=== PATIENT | female | born 1965 | race Caucasian/White ===

== ENCOUNTER 2022-07-17 07:42 | Outpatient (CLI) | payer OTHER, SELFPAY ==
--- OUTSIDE RECORDS SUMMARY | 2022-07-17 07:46 | XMS_ITS | Clinical Summary ---
:1965 Author Organization [facility] [place] [address] Care Team Providers Name Role Phone Pcp, No Primary Care Provider Unavailable Allergies Active Allergy Reactions Severity Noted Date Comments Erythromycin Stomach Upset 12/13/2008 Patient report s a sensitivity to this medication . Medications Medication Sig Dispensed Refills Start Date End Date Status meclizine (ANTIVERT) Take 1 tablet by 30 tablet 0 02/18/2019 Active 12.5 mg mouth 3 times tabletIndications: daily if needed. Benign paroxysmal positional vertigo of left ear Active Problems Problem Noted Date Sebaceous cyst 12/10/2011 Elevated BP 12/13/2008 Well woman exam 12/13/2008 Immunizations Name Administration Dates Next Due Tdap 12/13/2008 Family History Medical History Relation Name Comments Heart Disease Father double bypass Hyperlipidemia Father controlled high LDL Cancer-breast Maternal Grandfather at age 80 Diabetes Maternal Grandmother type 2 Asthma Mother Cancer Mother uterine cancer a t age 39 Good Health Mother Relation Name Status Comments Brother Alive Daughter Alive Father Alive Maternal Grandfather Maternal Grandmother Mother Alive Paternal Grandfather Paternal Grandmother Son Alive Social History Tobacco Use Types Packs/Day Years Used Date Never Smoker Smokeless Tobacco: Never Used Tobacco Cessation: Counseling Given: Yes Alcohol Use Standard Drinks/Week Comments Yes 0 (1 standard drink = 0.6 oz pure alcoho l) Alcohol Habits Answer Date Recorded How often do you have a drink containing alcohol? 2-4 times a month 02/18/2019 How many drinks containing alcohol do you have on a 1 or 2 02/18/2019 typical day when you are drinking? How often do you have six or more drinks on one Never 02/18/2019 occasion? Comment: Not asked Sex Assigned at Date Recorded Not on file Obstetrics History Para Term AB IAB SAB Ectopic Multiple Living Live Births 3 2 2 0 1 0 1 0 0 2 2 Date Outcome GA Total Labor/2nd/3rd Weight Sex Delivery Anes PTL Matilde A 1 A5 Name Clin Labor Term Vag Park ng Term Vag Park ng SAB Last Filed Vital Signs Vital Sign Reading Time Taken Comments Blood Pressure 142/83 11/04/2019 4:02 PM STRAIGHT TOOTH GEAR GENERATOR OPERATOR Pulse 88 11/04/2019 4:02 PM STRAIGHT TOOTH GEAR GENERATOR OPERATOR Temperature 36.7 ??C (98 ??F) 11/04/2019 4:01 PM STRAIGHT TOOTH GEAR GENERATOR OPERATOR Respiratory Rate - - Oxygen Saturation 99% 11/04/2019 4:01 PM STRAIGHT TOOTH GEAR GENERATOR OPERATOR Inhaled Oxygen Concentration - - Weight 101.6 kg (224 lb) 11/04/2019 4:01 PM STRAIGHT TOOTH GEAR GENERATOR OPERATOR Height 166.2 cm (5' 5.43) 11/04/2019 4:01 PM STRAIGHT TOOTH GEAR GENERATOR OPERATOR Body Mass Index 36.78 11/04/2019 4:01 PM STRAIGHT TOOTH GEAR GENERATOR OPERATOR Plan of Treatment Health Maintenance Due Date Last Done Comments COVID-19 vaccine series (#1) 01/19/1967 Hepatitis C screening for age 1007/22/1984 18-79 Colonoscopy through age 75 2011 Mammogram for age 45-75 11/01/2012 11/01/2011 Zoster (shingles) series for age 1007/22/2016 50+ (1 of 2) Lipids for age 45-75 12/09/2016 12/10/2011, 12/13/2008 Tetanus booster 12/13/2018 12/13/2008 BMI (ht and wt on same day) for 11/04/2020 11/04/2019, 08/0 05/2016 age 18+ Depression screening for age 12+ 11/04/2020 11/04/2019 Influenza for age 50-64 05/23/2022 Pap test for age 21-65 06/10/2022 06/10/2019, 06/10/2019, 12/10/2011, Additional history exists Tdap Completed 12/13/2008 Results Not on filefrom Last 3 Months Insurance Payer Benefit Plan / Subscriber ID Effective Dates Phone Addre ss Type Group [facility] [id number] 2019-Present [address] [address] [place] [address] Care Teams Motor Hotel Manager Relationship Specialty Start Date End Date Pcp, No PCP - General 06/02/12 .
[2022-07-17 09:28] LABS: Albumin* 4.5 g/dL (3.3-5.0)
[2022-07-17 09:29] LABS: Chloride* 102 mmol/L (96-114); Potassium* 4.7 mmol/L (3.6-5.1); Sodium* 139 mmol/L (135-149)
[2022-07-17 09:31] LABS: Aspartate Amino Transferase* 25 U/L (12-35); Bilirubin Total* 1.1 mg/dL (0.1-1.5); Blood Urea Nitrogen* 11 mg/dL (7-30); Carbon Dioxide* 28 mmol/L (20-32); Cholesterol* 203 mg/dL (90-199); Estimated Glomerular Filt Rate 67 ml/min; Glucose* 94 mg/dL (60-115); Total Protein* 6.9 g/dL (6.0-8.3)
[2022-07-17 09:32] LABS: Alanine Aminotransferase* 25 U/L (4-35); Alkaline Phosphatase* 77 U/L (40-150); Calcium* 9.2 mg/dL (8.4-10.6); HDL Cholesterol* 59 mg/dL (>=50); LDL Cholesterol Calculated 112 mg/dL (<100); Triglycerides* 161 mg/dL (40-149)
== END 2022-07-17 07:43 | disposition home or self-care (01) ==
PROVIDERS: PCP Family Medicine; Visit Provider Family Medicine
DX: R53.83 Other fatigue (principal); I10 Essential (primary) hypertension; E66.9 Obesity, unspecified; R73.01 Impaired fasting glucose; Z13.6 Encounter for screening for cardiovascular disorders
CPT/HCPCS: 80053; 80061; 84443

== ENCOUNTER 2022-07-18 15:50 | Outpatient (CLI) | payer OTHER, SELFPAY ==
--- OUTSIDE RECORDS SUMMARY | 2022-07-18 15:53 | XMS_ITS | Clinical Summary ---
:1965 Author Organization [facility] [place] [address] Care Team Providers Name Role Phone Pcp, [...] Comments Blood Pressure 142/83 11/04/2019 4:02 PM PLANTING SUPERVISOR Pulse 88 11/04/2019 4:02 PM PLANTING SUPERVISOR Temperature 36.7 ??C (98 ??F) 11/04/2019 4:01 PM PLANTING SUPERVISOR Respiratory Rate - - Oxygen Saturation 99% 11/04/2019 4:01 PM PLANTING SUPERVISOR Inhaled Oxygen Concentration - - Weight 101.6 kg (224 lb) 11/04/2019 4:01 PM PLANTING SUPERVISOR Height 166.2 cm (5' 5.43) 11/04/2019 4:01 PM PLANTING SUPERVISOR Body Mass Index 36.78 11/04/2019 4:01 PM PLANTING SUPERVISOR Plan of Treatment Health Maintenance Due Date [...] Effective Dates Phone Addre ss Type Group [facility] [id number] 2019-Present [address] [address] [place] [address] Care Teams Neurosurgical Nurse Practitioner Relationship Specialty Start Date End Date Pcp, No PCP - General 06/02/12 .
--- NOTE | 2022-07-18 16:00 | CRLHL7_ITS ---
For Patients: As a result of the Century Cures Act, medical imaging exams and procedure reports are released immediately into your electronic medical record. You may view this report before your referring provider. If you have questions, please contact your health care provider. INDICATION: FOLLOW UP OVARIAN CYST COMPARISON: 06/23/2019 TECHNIQUE: 2D juárez scale and color Doppler images were acquired of the pelvis using a transabdominal and transvaginal approach. FINDINGS: Sonographic images demonstrate a normal size and smooth outer contour of the uterus. Uterus measures 9.4 cm in length by 3.9 cm in AP diameter by 5.1 cm in transverse dimension. The myometrium has a heterogeneous echotexture. The endometrial lining measures 15 mm in composite thickness. 14 x 11 x 15 millimeter focus of increased echogenicity within the lower uterine segment, indeterminate. The right ovary measures 2.3 x 2.3 x 2.5 cm in size and the left ovary is not visualized. The right ovary demonstrates normal arterial and venous blood flow on color Doppler analysis. There are no suspicious fluid collections within the cul-de-sac. IMPRESSION: Nonvisualization of the left ovary. Normal right ovary. Thickened endometrium measuring 15 millimeters. Indeterminate focus of increased echogenicity within the lower uterine segment measuring 1.4 x 1.1 x 1.5 cm, possibly representing blood products, cannot exclude polyp or unusual leiomyoma. Dictated by Manuel Urias MD @ 07/18/2022 9:12:59 PM (Electronically Signed)
== END 2022-07-18 15:51 | disposition home or self-care (01) ==
LOC: US 15:52
PROVIDERS: PCP Family Medicine; Visit Provider Family Medicine
DX: Z87.42 Personal history of other diseases of the female genital tract (principal); R93.89 Abnormal findings on diagnostic imaging of other specified body structures
CPT/HCPCS: 76830; 76856

== ENCOUNTER 2022-08-01 06:14 | Day surgery (SDC) | payer OTHER, SELFPAY ==
--- NOTE | 2022-08-01 06:33 | SUR.PREOP ---
07/31/22 covid home antigen test negative.
[2022-08-01 06:36] VITALS: BMI 36.5
[2022-08-01 06:41] VITALS: BP 149/82; PULSE 94; RESP 16; TEMP 37; O2SAT 100
[2022-08-01] MEDS: LACTATED RINGERS 1000 ML 1,000 ML 100 ML IV (06:55)
[2022-08-01] MEDS: SODIUM CHLORIDE 0.9 % (FLUSH) 10 ML SYRINGE IVF (06:55)
[2022-08-01 07:19] LABS: Hemoglobin* 13.8 gm/dL (12.0-16.0)
--- NOTE | 2022-08-01 07:39 | W.PM.GYNPROC ---
Procedure Note Time Seen by Provider: 07:30 Date Seen: 08/01/22 Procedure Details: Kami Reynoso is a 57 year-old with thickened endometrial lining to 15 millimeters. This was an an incidental finding on TVUS. However, from 07/26 to 07/29/2022, she reported her first episode of post-menopausal bleeding that she described as tahmina to her menstrual cycle. Preoperative diagnosis: Abnormal uterine bleeding, post-menopausal bleeding Postoperative diagnosis: Same Procedure: Hysteroscopy, dilation and curettage. Anesthesia: Conscious sedation with paracervical block. Surgeon: Jannie Cuellar MD Estimated blood loss: <5 cc Specimen: Endometrial curettings to pathology. Fluid deficit: 75 cc Findings: Exam under anesthesia: Cervix palpates normal but cervical can was approximately 0.5 cm open and slow bleeding noted from cervical os. Uterus: anteverted position, approx 6 week size, mobile, without nodularity/masses palpable. Adnexa were without fullness or nodularity. On hysteroscopy: globally thickened and vascular endometrium. No fibroid or polyp noted. Procedure: Kami was taken to the operating where conscious sedation was found to be adequate. She was placed in the dorsal lithotomy position. An exam under anesthesia was performed with findings stated above. She was then prepped and draped in normal sterile manner. A bivalve metal speculum was placed in the vaginal canal. The cervix and vaginal canal appear normal. A paracervical block was placed using 1% Lidocaine with epi: 6 mL injected at the 12, 4 and 8 o'clock positions on the cervix. The anterior lip of the cervix was then grasped with a tenaculum. The cervix was dilated to Hegar 6. The uterus sounded to 9 cm. The hysteroscope advanced into the uterus and a diagnostic hysteroscopy was performed with findings stated above. Normal saline was used as the insufflation medium. The shanika-clear hysteroscopic shaver was used to collect endometrial sample of the entire endometrial cavity. A sharp curettage was performed until a gritty texture was noted. The hysteroscope was then readvanced into the uterus and documented a normal appearing uterine cavity. The hysteroscope and tenaculum were removed from the uterus and cervix. Excellent hemostasis noted. Nothing was used for hemostasis. The patient tolerated the procedure well. Sponge, lap and instruments counts were correct at the end of the procedure. The patient was awakened from anesthesia and taken to the recovery area in stable condition.
--- NOTE | 2022-08-01 07:59 | W.ANESCHARGE ---
Anesthesia Charges Start Date/Time Anesthesia Start Date: 08/01/22 Anesthesia Start Time: 07:32 Stop Date/Time Anesthesia Stop Date: 08/01/22 Anesthesia Stop Time: 08:20 Summary Emergency: No
[2022-08-01 08:20] VITALS: BP 141/78; PULSE 85; RESP 16; TEMP 36.2; O2SAT 98
[2022-08-01 08:36] VITALS: BP 141/74; PULSE 82; RESP 16; TEMP 36.2; O2SAT 98
[2022-08-01 08:53] VITALS: BP 154/72; PULSE 69; RESP 16; O2SAT 100
[2022-08-01 09:15] VITALS: BP 160/81; PULSE 70; RESP 16; O2SAT 97
== END 2022-08-01 09:40 | disposition home or self-care (01) ==
PROVIDERS: PCP Family Medicine; Visit Provider Obstetrics & Gynecology
PROC: 0UDB8ZZ Extraction of Endometrium, Via Natural or Artificial Opening Endoscopic (ICD-10-PCS; CPT 58558; principal; 2022-08-01 07:30)
DX: N95.0 Postmenopausal bleeding (principal); R93.89 Abnormal findings on diagnostic imaging of other specified body structures
CPT/HCPCS: 58558; 00952; 36415; 85018; 88305; J1100; J1885; J2250; J2405; J2704; J3010; J7120

== ENCOUNTER 2022-10-17 15:14 | Outpatient (CLI) | payer OTHER, SELFPAY ==
--- NOTE | 2022-10-17 15:20 | CRLHL7_ITS ---
For Patients: As a result of the Century Cures Act, medical imaging exams and procedure reports are released immediately into your electronic medical record. You may view this report before your referring provider. If you have questions, please contact your health care provider. DIGITAL SCREENING BILATERAL MAMMOGRAM USING TOMOSYNTHESIS AND COMPUTER-AIDED DETECTION INDICATION: 57-year-old female. No personal history of breast cancer biopsies. Screening mammogram. TECHNIQUE: CC and MLO views were obtained. This digital study was evaluated assistance of computer-aided detection. Digital breast tomosynthesis digital breast tomosynthesis utilized. COMPARISON: 09/05/2021. 07/06/2019. FINDINGS: Breast Composition: The breasts are almost entirely fatty. Benign-appearing lymph node upper outer LEFT breast. Within the upper outer RIGHT breast seen only on the MLO view there is a few millimeter triangular-shaped nodule. While this could reflect a lymph node, it was not convincingly present on 09/05/2021 nor on 11/01/2011. However, it was likely present on 07/06/2019. This may reflect a lymph node. It appears to be slightly more dense than previously. An exaggerated CC view laterally, as well as a true ML view is recommended. Ultrasound may be required. IMPRESSION: 1. Nothing specific for malignancy on the LEFT. No significant change on the LEFT. 2. Questionable lymph node superior RIGHT breast seen only on the MLO view for which additional imaging is recommended. BI-RADS Category 0: Incomplete: Need Additional Imaging Evaluation and/or Prior Mammograms for Comparison The [facility] will contact the patient for follow-up. A lay language report of this examination will be provided to the patient. Dictated by: Fito Shook MD @10/18/2022 9:20:18 AM jj/Dictated by: Fito Shook MD @ 10/18/2022 9:20:00 AM (Electronically Signed)
== END 2022-10-17 15:15 | disposition home or self-care (01) ==
LOC: MAMMO 15:16
PROVIDERS: PCP Family Medicine; Visit Provider Family Medicine
DX: Z12.31 Encounter for screening mammogram for malignant neoplasm of breast (principal)
CPT/HCPCS: 77063; 77067

== ENCOUNTER 2022-10-23 08:35 | Outpatient (CLI) | payer OTHER, SELFPAY ==
--- NOTE | 2022-10-23 08:45 | CRLHL7_ITS ---
For Patients: As a result of the Cures Act, medical imaging exams and procedure reports are released immediately into your electronic medical record. You may view this report before your referring provider. If you have questions, please contact your health care provider. DIGITAL DIAGNOSTIC RIGHT MAMMOGRAM USING TOMOSYNTHESIS AND COMPUTER-AIDED DETECTION RIGHT BREAST ULTRASOUND CLINICAL HISTORY: RIGHT breast nodular density. COMPARISON: 10/17/2022, 09/05/2021, 07/06/2019, 11/01/2011. TECHNIQUE: Digital RIGHT mammogram in two projections. Tomosynthesis and CAD utilized. Real-time ultrasound imaging of RIGHT breast with imaging documentation. Scanning was performed by both the technologist and the radiologist. BREAST COMPOSITION: The breasts are almost entirely fat. FINDINGS: 3D XCCL and 3D true lateral RIGHT breast mammogram images submitted. Persistent nodular density within the RIGHT axillary region. Normal RIGHT axillary lymph node incidentally noted. No architectural distortion. Benign calcifications. Targeted RIGHT breast ultrasound performed in the RIGHT axillary region demonstrates a normal lymph node with central fatty hilum. Additionally, there is a skin tag which accounts for the mammographic density. No concerning findings. IMPRESSION: Normal RIGHT axillary lymph node and normal incidental skin tag. No evidence of breast malignancy or adenopathy. RECOMMENDATIONS: BILATERAL screening mammography in 1 year. BI-RADS Category 2: Benign Results and recommendations discussed with the patient. A lay language report of this examination will be provided to the patient. Dictated by Manuel Urias MD @ 10/23/2022 12:06:10 PM ruth annj/Dictated by: Manuel Urias MD @ 10/23/2022 12:06:00 PM (Electronically Signed)
--- NOTE | 2022-10-23 09:15 | CRLHL7_ITS ---
For Patients: As a result of the Cures Act, medical imaging exams and procedure reports are released immediately into your electronic medical record. You may view this report before your referring provider. If you have questions, please contact your health care provider. PLEASE SEE DIGITAL DIAGNOSTIC RIGHT MAMMOGRAM PERFORMED SAME DAY CRL:carson byrd/Dictated by: Manuel Urias MD @ 10/23/2022 12:06:00 PM (Electronically Signed)
== END 2022-10-23 08:36 | disposition home or self-care (01) ==
LOC: US 08:36
PROVIDERS: PCP Family Medicine; Visit Provider Family Medicine
DX: N63.10 Unspecified lump in the right breast, unspecified quadrant (principal); R92.8 Other abnormal and inconclusive findings on diagnostic imaging of breast
CPT/HCPCS: 76642; 77065; G0279

== ENCOUNTER 2022-10-24 15:28 | Outpatient (CLI) | payer OTHER, SELFPAY ==
[2022-10-24 17:16] LABS: Albumin* 4.5 g/dL (3.3-5.0); Chloride* 104 mmol/L (96-114); Sodium* 140 mmol/L (135-149)
[2022-10-24 17:17] LABS: Potassium* 3.9 mmol/L (3.6-5.1)
[2022-10-24 17:18] LABS: Cholesterol* 209 mg/dL (90-199)
[2022-10-24 17:19] LABS: Alkaline Phosphatase* 71 U/L (40-150); Aspartate Amino Transferase* 23 U/L (12-35); Bilirubin Total* 1.1 mg/dL (0.1-1.5); Blood Urea Nitrogen* 11 mg/dL (7-30); Carbon Dioxide* 26 mmol/L (20-32); Creatinine* 0.9 mg/dL (0.5-1.5); Estimated Glomerular Filt Rate 75 ml/min; Glucose* 97 mg/dL (60-115); Total Protein* 7.2 g/dL (6.0-8.3); Triglycerides* 101 mg/dL (40-149)
[2022-10-24 17:20] LABS: Alanine Aminotransferase* 27 U/L (4-35); Calcium* 9.4 mg/dL (8.4-10.6); HDL Cholesterol* 70 mg/dL (>=50); LDL Cholesterol Calculated 119 mg/dL (<100)
== END 2022-10-24 15:29 | disposition home or self-care (01) ==
PROVIDERS: PCP Family Medicine; Visit Provider Family Medicine
DX: Z01.818 Encounter for other preprocedural examination (principal); I10 Essential (primary) hypertension; E66.9 Obesity, unspecified; Z13.6 Encounter for screening for cardiovascular disorders
CPT/HCPCS: 80053; 80061

== ENCOUNTER 2022-12-12 06:04 | Day surgery (SDC) | payer OTHER, SELFPAY ==
[2022-12-12] VITALS (22 sets, daily range): BP systolic 109–199; BP diastolic 61–96; PULSE 57–105; RESP 14–20; TEMP 36.1–37.2; O2SAT 94–100; BMI 37.1
[2022-12-12] MEDS: LACTATED RINGERS 1000 ML 1,000 ML 100 ML IV ×3 (06:32→10:11)
[2022-12-12] MEDS: SODIUM CHLORIDE 0.9 % (FLUSH) 10 ML SYRINGE IVF (06:32)
[2022-12-12 06:47] LABS: Ur HCG Qualitative* Negative (Negative)
[2022-12-12] MEDS: SCOPOLAMINE 1 MG/3 DAY PATCH 1 PATCH TRANSDERMA (07:05)
[2022-12-12] MEDS: CEFAZOLIN 1 GM inj 3 GM IVP (07:28)
--- NOTE | 2022-12-12 07:31 | P.PCNOB_ITS ---
Procedure Type of Hysterectomy: Total Laparoscopic Pre-op/Post-op diagnoses: Pre-Op/Post-Op Diagnoses Operation Date: 12/12/22 07:15 <No data on this case meets the specified criteria> Procedure: Procedures Operation Date: 12/12/22 07:15 Laparoscopic total abdominal hysterectomy, bilateral salpingo-oophorectomy, cystoscopy, and lysis of adhesions Site Safety Coordinator: Corinna Srivastava Estimated blood loss (mL): 75 Anesthesia type: General Complications: none Fluids: crystalloid Fluid amount (mL): 2,000 Urine output (mL): 300 Weight of Uterus: 3.139 oz Specimen: uterus, left tube & ovary and right tube & ovary Disposition: floor Narrative: Preoperative diagnosis: 57-year-old 3 para 2011 with thickened endometr ial lining and postmenopausal bleeding. Postoperative diagnosis: Same Procedure: Total laparoscopic hysterectomy, bilateral salpingectomy, diagnostic cystoscopy. Anesthesia: General endotracheal, local Surgeon: Jannie Cuellar MD Assist: Corinna Srivastava MD Estimated blood loss: 75 mL. IV Fluid: 2000 mL Urine output: 300 mL Drains: Elliott to gravity Specimen: Uterus, bilateral fallopian tubes, and bilateral ovaries to pathology. Findings: On exam under anesthesia: Normal external genitalia. The uterus was mid position and slightly deviated to the left, approximately 7 week size, mobile without nodularity or masses palpable. Adnexa without mass or fullness palpable. On laparoscopy: Filmy adhesion of colon epiploica to left anterior abdominal wall in the pelvis. Normal appearing uterus, bilateral fallopian tubes, and bilateral ovaries. Appendix no visualized. Live is normal appearing. After cuff closure, the vaginal cuff was palpated to be intact with no defect. Cystoscopy: Complete survey of the bladder performed. No defect or suture noted. Normal bilateral ureteral efflux. Procedure: Kami was taken to the operating room where general anesthetic was found to be adequate. She was placed in the dorsal lithotomy position and an exam under anesthesia was performed with findings stated above. She was then prepped and draped in a normal sterile manner. A Elliott catheter was placed. A bivalve speculum was placed in the vaginal canal. A long tenaculum was placed on the anterior lip of the cervix, in the uterus sounded to 8cm. A medium size VCare uterine manipulator was then placed. The tenaculum and speculum were removed from the cervix. Attention was then turned to performing the laparoscopic portion of the procedure. All incisions were infiltrated with 1% lidocaine with epi prior to incising the skin. A vertical, infraumbilical 1 cm incision was made. An 5 mm trocar was then placed under direct visualization. The abdomen was then insufflated with CO2 gas to a pressure of 15 mm of mercury. Two pelvic ports were then placed approximately 3-4 finger breaths medial to the ischial crests. The trocar in the RLQ = 5mm, LLq = 11mm. An additional 5 mm port was placed hands breath medial and superior to RLQ port. These were placed under direct visualization. Ligasure was use to dissect one filmy adhesion of the large bowel epiploica off the anterior abdominal wall for better visualization of the uterus. Attention was then turned to performing the hysterectomy. Both ureters were visualized in the normal position bilaterally. The left IP ligament was grasped, cauterized and cut to remove the ovary with sequential pedicles using the dissecting, ligasure blunt tip dissecting forceps. The left side of the hysterectomy was performed using the ligasure dissecting forceps. The round ligament was cauterized and bisected. The broad ligament was then cauterized and and bisected. Then sequential pedicles were made through the broad ligament. The posterior leaf of the broad ligament was then divided and sequential pedicles carried down to the level of the VCare cup. The anterior leaf of the broad ligament was then divided down to the level of the anterior aspect of the VCare cup and a bladder flap created. The uterine vessels were then skeletonized. The uterine vessels were then cauterized and divided. Then excess tissue was cleared over the top of the VCare cup using the dissecting forceps. The right salpingo-oophorectomy and right side of the hysterectomy were then performed in a similar manner. The Ligasure [employer] pen with the spatula attachment was then used to perform the colpotomy incising around the VCare cup. The uterus was removed and the fundus placed in the vaginal canal to maintain insufflation. The vaginal cuff was then reapproximated using 2-0 V lock suture in a running manner. All the pedicles and vaginal cuff were then closely visualized and hemostasis obtained with bipolar cautery using the ligasure dissecting forceps or the [employer] pen with the spatula. The the uterus was removed from the vaginal canal and sent to pathology. The Elliott catheter was briefly removed. A diagnostic cystoscopy was performed using normal saline as the insufflation medium. The dome of the bladder was noted to be without injury and no evidence of any sutures from the vaginal cuff causing injury. Normal urine flow was noted through both ureteral orifices. Fluorescein IV was used to visualize the urine more easily. The Elliott catheter was then replaced. Attention was then returned to the abdomen where hemostasis was verified. La was applied to the vaginal cuff. The CO2 pressure decreased to 8mmHG and hemostasis verified. The fascia in the LLQ incision was approximated with 0- Vicryl suture using the Jd Thomaselder fascial closure device. This was closed under direct visualization with the laparoscope. All trocars were removed under direct visualization. CO2 gas was allowed to escape the infraumbilical port prior to its removal. All skin incisions were re-approximated using 4-0 Vicryl in a running subcuticular manner, Exophin skin adhesive gel and adhesive bandages placed. The patient tolerated this procedure well. Sponge, lap and instrument counts were correct x2 at the end of the procedure and the patient was taken to the recovery area in stable condition. The patient received 3gm IV ancef prior to the start of the procedure.
--- NOTE | 2022-12-12 07:52 | W.ANESCHARGE ---
Anesthesia Charges Start Date/Time Anesthesia Start Date: 12/12/22 Anesthesia Start Time: 07:18 Stop Date/Time Anesthesia Stop Date: 12/12/22 Anesthesia Stop Time: 10:41
--- NOTE | 2022-12-12 07:53 | P.NB_ITS ---
Nerve Block Nerve Block Time Seen by Provider: 07:26 Date Seen: 12/12/22 Type of block requested by surgeon for post-operative analgesia: TAP Side: bilateral Time out performed: Yes Verification of patient name: Yes Verification of date of : Yes Site marking: site marked Name of person performing procedure: Eduard Continuous monitoring Was continuous monitoring of O2 sat, B/P, cardiac monitor technician, recorded every 15 minutes?: Yes Procedure Checklist: sterile prep, needles and gloves Ultrasound guided. Images saved: Yes Medications given in 5ml increments after negative aspiration: Marcaine %: 0.25 mL: 30 Needle gauge: 20 and Exparel mL: 10 Patient tolerated procedure well: Yes Additional comments: Needle noted adjacent to nerve Block Charges Block Charge (with Pro Fee): TAP Bilateral Use of Ultrasound Machine for Block: Yes- US Guidance/pain block
[2022-12-12] MEDS: KETOROLAC 30 MG/ML inj IVP (10:12)
--- NOTE | 2022-12-12 10:38 | W.ANESCHARGE ---
Anesthesia Charges Start Date/Time Anesthesia Start Date: 12/12/22 Anesthesia Start Time: 07:18 Stop Date/Time Anesthesia Stop Date: 12/12/22 Anesthesia Stop Time: 10:41
[2022-12-12] MEDS: HYDROmorphone 0.5 mg/0.5 ml inj IVP (11:39)
[2022-12-12] MEDS: OXYCODONE 5 MG TABLET PO ×2 (14:02→19:59)
[2022-12-12] MEDS: ACETAMINOPHEN 325 MG TABLET 650 MG PO ×2 (14:03→19:59)
[2022-12-12] MEDS: IBUPROFEN 600 MG TABLET PO ×2 (17:01→23:05)
[2022-12-12] MEDS: SIMETHICONE 80 MG TAB.CHEW 160 MG PO (20:00)
[2022-12-12] MEDS: ENOXAPARIN 40 MG/0.4 ML INJ SUBCUT (21:13)
[2022-12-13] MEDS: ACETAMINOPHEN 325 MG TABLET 650 MG PO ×2 (02:06→08:08)
[2022-12-13 04:52] VITALS: BP 122/81; PULSE 68; RESP 16; TEMP 36.9; O2SAT 95
[2022-12-13] MEDS: IBUPROFEN 600 MG TABLET PO ×2 (04:53→10:58)
[2022-12-13 07:00] LABS: Hemoglobin* 10.7 gm/dL (12.0-16.0)
[2022-12-13 07:26] LABS: Est. Creatinine Clearance* 56.53; Estimated Glomerular Filt Rate 66 ml/min
[2022-12-13 08:02] VITALS: BP 147/82; PULSE 85; RESP 16; TEMP 37; O2SAT 97
[2022-12-13] MEDS: DOCUSATE SODIUM 100 MG CAPSULE PO (08:23)
[2022-12-13] MEDS: LOSARTAN POTASSIUM 50 MG TABLET PO (10:00)
--- NOTE | 2022-12-13 12:38 | P.DS_ITS ---
DS: Providers Provider Time Seen by Provider: 08:00 Date Seen: 12/13/22 Primary care physician: Clari Goldberg MD Attending Physician on discharge: Jannie Cuellar MD Date of Discharge: 12/13/22 DS: Diagnosis Discharge Diagnosis (1) Family history of malignant neoplasm of endometrium: Status: Acute (2) Endometrial thickening on ultrasound: Status: Acute (3) S/P total hysterectomy and BSO (bilateral salpingo-oophorectomy): Status: Acute CHILD CARE SITTER-Discharge Summary Hospital Course Hospital Course Narrative: Patient is a 57 year old admitted on 12/12/2022 for TLH-BSO and cystoscopy. Indication for surgery: thickened endometrial strip and postmenopausal bleeding. Intraoperative findings were notable for filmy adhesion of bowel epiploica to anterior abdominal wall, but otherwise benign appearing uterus, fallopian tubes, and ovaries. She had an uncomplicated surgery. Postoperative course has been uneventful. Vitals have been stable. She has remained afebrile. Today, on postoperative day 1, she reports the pain is well controlled. She has been able to ambulate Without difficulty. She is tolerating regular diet. She is passing flatus. Bridges catheter has been removed, and she is voiding without difficulty. Time Spent with Patient Time attestation: Total time spent providing and/or coordinating discharge services: Time spent: Less than 30 minutes CHILD CARE SITTER - Exam Physical Exam: Vital signs: Temp Pulse Resp BP Pulse Ox O2 Del Method 98.6 F 85 16 147/82 H 97 Room Air 12/13/22 08:02 12/13/22 08:02 12/13/22 08:02 12/13/22 08:02 12/13/22 08:02 12/13/22 08:02 Narrative: Physical exam: General: No acute distress Psych: Alert and oriented x3, full affect Heart: Regular rate and rhythm, no murmur rub or gallop Lungs: Clear to auscultation bilaterally Abdomen: hypoactive bowel sounds, soft, mild tenderness at incision sites only, no rebound, or guarding Skin: No lesions or rashes Lower extremities: No edema or erythema Pelvic exam: Very scant blood on pad CHILD CARE SITTER - DS: Data Data Completed and Pending Labs on day of discharge: Labs from last 24 hours 12/13/22 06:50 Hgb 10.7 L Creatinine 1.0 Estimated Creat Clear 56.53 Estimated GFR 66 Procedures Procedures: Procedures Operation Date: 12/12/22 07:15 Actual Procedure Side Surgeon p Total Laparoscopic Abdominal Hysterectomy, Bilateral Salpingo-Oopherectomy, Cystoscopy Bilateral Jannie Cuellar MD Complications: none Discharge Plan Discharge Disposition: Home, Self-Care Discharging Surgeon: Jannie Cuellar MD Follow-Up Appointment: 2 weeks postop and 6-8 weeks postop Prescriptions: New acetaminophen 325 mg Tablet 650 mg PO Q4H PRN (Reason: minor pain) 30 Days Qty: 120 0RF docusate sodium 100 mg Capsule 100 mg PO BID PRN (Reason: Constipation) 30 Days Qty: 60 0RF ibuprofen 600 mg Tablet 600 mg PO Q6H 30 Days Qty: 120 0RF simethicone 80 mg Tablet,Chewable 160 mg PO Q4H PRN (Reason: gas) 30 Days Qty: 60 0RF oxycodone 5 mg Tablet 5 mg PO Q4H PRN (Reason: Moderate Pain) 14 Days Qty: 20 0RF sennosides [Evac-U-Gen (sennosides)] 8.6 mg tablet 8.6 mg PO DAILY 30 Days Qty: 30 0RF Continued losartan 50 mg tablet 50 mg PO QDAY Qty: 90 4RF cholecalciferol (vitamin D3) 25 mcg (1,000 unit) capsule 25 mcg PO QDAY multivitamin Tablet 1 tab PO QAM Additional Instructions: LAPAROSCOPY POSTOPERATIVE INSTRUCTIONS ACTIVITY * No heavy lifting/pushing/pulling for 4-6 weeks. Do not lift anything more than about 10 lbs (such as laundry, groceries, children, pets), vacuum, push heavy doors or grocery carts, etcYou may climb stairs as tolerated. * Do not put anything in the vagina for 6-8 weeks after surgery unless otherwise instructed by your doctor (including tampons, douching, sexual intercourse, etc). * No driving for about 2 weeks after surgery, while you are taking narcotic pain medication, or until you feel that you are ready. Practice checking your blind spot and stepping hard on the brake. * Avoid sitting or lying in bed for more than 2 hours at a time while you are awake to reduce your risk of blood clots. * You may return to work when directed by your physician. Please contact your doctor if you need any return to work letters or medical leave paperwork to be completed. WOUND CARE * You will have 4 small incisions on your abdomen. There will be dissolvable stitches under your skin that do not need to be removed. * Shower daily after surgery. Clean your incision with mild antibacterial soap and water. Pat your incision dry with a clean towel. No tub baths until wound is completely healed. * Wash your hands frequently, especially before touching your incision, changing any dressings, after using the restroom, and before eating. PAIN MANAGEMENT * Take your oral pain medication as needed. You should be taking Ibuprofen 600mg every 6 hours with 500 mg-1 gram of Tylenol every 6 hours. You can take these together every six hours or alternate them every 3 hours. You should then take the oxycodone as needed if you have breakthrough pain on top of the Tylenol and Ibuprofen. * Some pain medications can cause constipation so you should take a stool softener (i.e. colace/senna) while you are on these medications. * You may also take milk of magnesia or Miralax for constipation. WHAT TO EXPECT AT HOME * Recovery from surgery is generally 2-4 weeks, but sometimes longer for more strenuous activity. It is normal to be very tired during this time. * It is normal to have some drainage or a small amount of vaginal bleeding after surgery which may last up to 6 weeks. * You may go home with a bridges catheter in your bladder. If so, you will need to follow up for a nurse visit in 7-10 days for removal. * You will most likely experience gas pain, abdominal swelling, or shoulder pain for 24-72 hours after surgery. This is from the carbon dioxide gas put into your abdomen to better visualize your organs. A warm shower, heating pad, and/or walking may help. WHEN TO CALL YOUR DOCTOR: * Fever (>100.4?F or 38.0?C) or chills. * Incision problems such as redness, warmth, swelling, or foul-smelling drainage. * Severe nausea or persistent vomiting. * Bright red vaginal bleeding (soaking >1 pad/hour) or foul-smelling vaginal drainage. * Severe pain not relieved with pain medication. * Pain and swelling in your legs, especially if it is only on one side and not the other. * Pain with urination, cloudy urine, or foul-smelling urine. * Or if you have any other problems or questions. CALL 911 OR GO TO THE EMERGENCY ROOM IF YOU HAVE: Any shortness of breath, difficulty breathing, or chest pain. Forms: Work/School Release Follow-up: Clari Goldberg MD [Primary Care Provider] - Jannie Cuellar MD [Staff Physician] - Discharge Orders: Discharge Order (Routine); Ordered 12/13/22 Ordered By: Jannie Cuellar
== END 2022-12-13 13:35 | disposition home or self-care (01) ==
LOC: OR 06:15 → OB 11:00
PROVIDERS: PCP Family Medicine; Visit Provider Obstetrics & Gynecology
PROC: 0UT94ZZ Resection of Uterus, Percutaneous Endoscopic Approach (ICD-10-PCS; CPT 58571; principal; 2022-12-12 07:15)
DX: N95.0 Postmenopausal bleeding (principal); R93.89 Abnormal findings on diagnostic imaging of other specified body structures; Z80.49 Family history of malignant neoplasm of other genital organs
CPT/HCPCS: 58571; 00840; 36415; 76942; 81025; 82565; 85018; 88307; A9270; C9290; J0330; J0690; J1100; J1170; J1650; J1885; J2250; J2405; J2704; J2710; J3010; J3475; J3490; J7120

== ENCOUNTER 2023-07-04 08:32 | Outpatient (CLI) | payer OTHER, SELFPAY | END 2023-07-04 08:33 | disposition home or self-care (01) | LOC: NFLDREF 07-08 14:20 | PROVIDERS: PCP Family Medicine; Referring Provider Family Medicine; Visit Provider Family Medicine | DX: Z00.00 Encounter for general adult medical examination without abnormal findings (principal); I10 Essential (primary) hypertension; E78.5 Hyperlipidemia, unspecified; E66.9 Obesity, unspecified; R73.01 Impaired fasting glucose | CPT/HCPCS: 80053; 80061 ==

== ENCOUNTER 2023-11-11 15:48 | Outpatient (CLI) | payer OTHER, SELFPAY ==
--- OUTSIDE RECORDS SUMMARY | 2023-11-11 15:50 | XMS_ITS | Clinical Summary ---
Author Name Unknown Organization [employer] [facility] [employer] Address [place], [place] [address] Care Team Providers Care Protective Officer Name Role Phone Pcp, No Primary Care Provider Unavailabl e Allergies Active Allergy Reactions Criticality Noted Date Comments Erythromycin Stomach Upset 12/13/2008 Patient reports a sensitivity to this medication. 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 30 tablet 0 02/18/2019 Active Active Problems Problem Noted Date Diagnosed Date Sebaceous cyst 12/10/2011 Elevated BP 12/13/2008 Well woman exam 12/13/2008 Immunizations Name Administration Dates Next Due Tdap 12/13/2008 Family History Medical History Relation Name Comments Heart Disease Father double bypass Hyperlipidemia Father controlled hi gh LDL Cancer-breast Maternal Grandfather at age 80 Diabetes Maternal Grandmother type 2 Asthma Mother Cancer Mother uterine cancer at age 39 Good Health Mother Relation Name Status Comments Brother Alive Daughter Alive Father Alive Maternal Grandfather Maternal Grandmother Mother Alive Paternal Grandfather Paternal Grandmother Son Alive Social History Tobacco Use Types Packs/Day Years Used Date Smoking Tobacco: Never Smokeless Tobacco: Never Tobacco Cessation:Counseling Given: Yes Alcohol Use Standard Drinks/Week Comments Yes 0 (1 standard drink = 0.6 oz pur e alcohol) PHQ-2 Answer Date Recorded PHQ-2 Score 0 11/04/2019 Social Connections Answer Date Recorded Frequency of Communication with Friends and Fami ly Not on file 09/22/2021 Financial Resource Strain Answer Date R ecorded Difficulty of Paying Living Expenses Not on file 09/22/2021 Difficulty of Paying Living Expenses Not on file 09/22/2021 Sex and Gender Information Value Date Recorded Sex Assigned at Not on file Gender Identity Not on file Sexual Orientation Not on file Obstetrics History Para Term AB IAB SAB Ectopic Multiple Livin g Live Births 3 2 2 0 1 0 1 0 0 2 2 Date Outcome GA Total Labor Labor/2nd/3rd Weight Sex Delivery Anes PTL Matilde A1 A5 Name Cl in Term Vag Park ng Term Vag Park ng SAB Last Filed Vital Signs Vital Sign Reading Time Taken Comments Blood Pressure 142/83 11/04/2019 4:02 PM FABRIC AWNING REPAIRER Pulse 88 11/04/2019 4:02 PM FABRIC AWNING REPAIRER Temperature 36.7 ??C (98 ??F) 11/04/2019 4:01 PM FABRIC AWNING REPAIRER Respiratory Rate - - Oxygen Saturation 99% 11/04/2019 4:01 PM FABRIC AWNING REPAIRER Inhaled Oxygen Concentration - - Weight 101.6 kg (224 lb) 11/04/2019 4:01 PM FABRIC AWNING REPAIRER Height 166.2 cm (5' 5.43) 11/04/2019 4:01 PM CS T Body Mass Index 36.78 11/04/2019 4:01 PM FABRIC AWNING REPAIRER Plan of Treatment Health Maintenance Due Date Last Done Comments COVID-19 vaccine series (#1) 01/19/1967 HIV for age 15-65 1981 Hepatitis C screening for age 18-79 1984 Colonoscopy through age 75 2011 Mammogram for age 45-75 11/01/2012 11/01/2011 Zoster (shingles) series for age 50+ (1 of 2) 2016 Lipids for age 45-75 12/09/2016 12/10/2011, 12/14/19 09 Tetanus booster 12/13/2018 12/13/2008 BMI (ht and wt on same day) for age 18+ 11/04/2020 11/04/2019, 04/30/2016 Depression screening for age 12+ 11/04/2020 11/04/2019 Pap test for age 21-65 06/10/2022 9, 06/10/2019, 12/10/2011, Additional history exists Influenza for age 50-64 05/23/2023 Tdap Completed 12/13/2008 Pneumococcal series for age 6-64 Aged Out No longer eligible based on patient's age to complete this topic Care Teams Protective Officer Relationship Specialty Start Date End Date Pcp, No . PCP - General 06/02/12
--- NOTE | 2023-11-11 16:00 | MM_ITS ---
Final Report Patient: TISHA JAQUEZ Facility:?[facility] Patient ID:?[id number] Study:?XRay Breast Bilateral 3D W/CAD-11/11/2023 5:29:56 PM Ordering Physician:Clari Colmenares Final Report: BILATERAL SCREENING MAMMOGRAM WITH COMPUTER-AIDED DETECTION AND TOMOSYNTHESIS TECHNIQUE: CC and MLO views were obtained. These mammographic images have been obtained using full-field digital technique. These mammographic images were interpreted with the benefit of computer-aided detection. Breast Tomosynthesis was used in this interpretation. COMPARISON FILM: 10/23/22, 10/17/22, 09/05/21. FINDINGS: The breasts are almost entirely fatty. IMPRESSION: There is no radiographic evidence for malignancy. ASSESSMENT: BI-RADS Category 2: Benign RECOMMENDATION: Routine screening mammogram in 1 year. A lay language report of this examination will be provided to the patient. Manuel Urias M.D. Diagnostic Radiologist [email or web address] DSM/sp R& Transcribed: 4:38 p.m. SP/Dictated by: Manuel Urias MD @ 11/12/2023 10:13:00 AM (Electronic Signature)
== END 2023-11-11 15:49 | disposition home or self-care (01) ==
LOC: MAMMO 15:49
PROVIDERS: PCP Family Medicine; Visit Provider Family Medicine
DX: Z12.31 Encounter for screening mammogram for malignant neoplasm of breast (principal)
CPT/HCPCS: 77063; 77067

== ENCOUNTER 2024-06-25 07:55 | Outpatient (CLI) | payer OTHER, SELFPAY ==
--- OUTSIDE RECORDS SUMMARY | 2024-06-25 11:02 | XMS_ITS | Clinical Summary ---
Author Organization [employer] [facility] [employer] Address [place], [place] [address] Care Team Providers Care Baggage And Mail Agent Name Role Phone Pcp, No Primary Care Provider Unavailabl e Allergies Active Allergy Reactions Criticality Noted Date Comments Erythromycin Stomach Upset 12/13/2008 Patient reports a sensitivity to this medication. 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 30 tablet 02/18/2019 Active Active Problems Problem Noted Date [...] Outcome GA Total Labor Labor/2nd/3rd Weight Sex Type Anes PTL Matilde A1 A5 Name Clin Term Vag Living Term Vag Living SAB Last Filed Vital Signs Vital Sign Reading Time Taken Comments Blood Pressure 142/83 11/04/2019 4:02 PM NET DEVELOPER Pulse 88 11/04/2019 4:02 PM NET DEVELOPER Temperature 36.7 ??C (98 ??F) 11/04/2019 4:01 PM NET DEVELOPER Respiratory Rate - - Oxygen Saturation 99% 11/04/2019 4:01 PM NET DEVELOPER Inhaled Oxygen Concentration - - Weight 101.6 kg (224 lb) 11/04/2019 4:01 PM NET DEVELOPER Height 166.2 cm (5' 5.43) 11/04/2019 4:01 PM CS T Body Mass Index 36.78 11/04/2019 4:01 PM NET DEVELOPER Plan of Treatment Health Maintenance Due Date Last Done Comments HIV for age 15-65 1981 Hepatitis C [...] 06/10/2022 9, 06/10/2019, 12/10/2011, Additional history exists COVID-19 vaccine series (2023- season) 2024 Influenza for age 50-64 05/23/2024 Tdap Completed 12/13/2008 Pneumococcal series for age 6-64 Aged Out No longer eligible based on patient's age to complete this topic Procedures Procedure Name Priority Date/Time Associated Diagnosis Comments POLE SETTER THIN PREP PAP SCREEN IMAGED Routine 06/10/2019 10:49 AM CDT LIPID PANEL Routine 12/10/2011 2:30 PM CDT Well woman exam XR MAMMO BILAT SCREEN FFDM (IA) Routine 11/01/2011 4:44 PM NET DEVELOPER Other screening mammogram from Last 3 Months or Most Recently Relevant to Health Maintenance Results * POLE SETTER THIN PREP PAP SCREEN IMAGED (06/10/2019 10:49 AM CDT) Case Report Gynecologic Cytology Report ? Case: [id number] ? Authorizing Provider: ??Clari Goldberg MD ??Collected: ? 06/10/2019 1049 ? Ordering Location: ? [facility] ?Received: ?06/11/2019 1125 ? First Screen: ?Dennis Shrestha ? Specimen: ?POLE SETTER ThinPrep Vial Screening, Cervical/Vaginal ? 06/17/2019 8:02 AM CDT [facility] INTERPRETATION/ RESULT NEGATIVE FOR INTRAEPITHELIAL LESION OR MALIGNANCY (NIL) (none) 06/17/2019 8:02 AM CDT [facility] IMEN ADEQUACY Satisfactory for evaluation No endocervical component seen 06/17/2019 8:02 AM CDT [facility] HPV REQUEST HPV and PAP 06/17/2019 8:02 AM CDT [facility] Menstrual Status 06/17/2019 8:02 AM CDT [facility] Comment:menopause Automated Review Successful 06/17/2019 8:02 AM CDT [facility] Comment:Specimen processed s uccessfully by automated milling machine tender device, ThismomentPrep Imaging System, [employer] ANCILLARY TESTING POLE SETTER HPV Ordered, Please see separate report 06/17/2019 8:02 AM CDT [facility] Note The pap test is a screening technique, not a diagnostic procedure. ??It is used primarily to screen for squamous cancers and precursor lesions. ??Published studies have shown that it is subject to both false negative and false positive results. ??The pap test should not be used as the sole means to diagnose or exclude pre-malignant and malignant lesions. Cytology is screened and interpreted at [facility] - [address], [place] [address] and [facility] - [address]; [place] [address] and [facility] - [address]; [place] [address] and [facility] [address]; [place] [address] 06/17/2019 8:02 AM CDT [facility] Other (Cervical/Vagina l) 06/10/2019 10:49 AM CDT 06/11/2019 11:25 AM CDT Clari Goldberg MD PATHOLOGY/[facility] [address] [place] [address], [place] * LIPID PANEL (12/10/2011 2:30 PM CDT) CHOLESTEROL,TOTAL 156 100 - 199 mg/dL [facility] TRIGLYCERIDES 96 <150 mg/dL [facility] HDL CHOLESTEROL 44 >40 mg/dL [facility] CHOL/HDL RATIO 3.55 <4.50 [facility] LDL CHOLESTEROL 93 <131 mg/dL [facility] PATIENT STATUS Fasting [facility] Blood specimen (specimen) BLOOD SPECIMEN / Unknown 12/10/2011 2:30 PM CDT 12/10/2011 2:26 PM CDT Irina White MD CHEMISTRY [facility] [address] [id number] * XR MAMMO BILAT SCREEN FFDM (11/01/2011 4:44 PM NET DEVELOPER) Anatomical Region Laterality Modality BREASTS, Breast Left, Breast Right Bilateral Mammography Impressions 11/04/2011 12:25 PM NET DEVELOPER ??There is no radiographic evidence for malignancy. ??Recommend annual mammograms. A lay language report of this examination will be provided to the patient. MAMMOGRAM ASSESSMENT: ??ACR 2 Benign Narrative 11/04/2011 12:25 PM NET DEVELOPER XR MAMMO BILAT SCREEN FFDM [G0202.0] CLINICAL HISTORY: ??This is an asymptomatic 46 y.o. patient. INDICATION FOR EXAM: Mammogram Screening. TECHNIQUE: CC & MLO views were obtained. ??This digital study was evaluated with the assistance of Computer-Aided Detection. ?? COMPARISON FILMS: Priors not available at the time of this report. FINDINGS: ??Mammographically, the breast tissue has scattered fibroglandular densities (approximately 25% - 50% glandular). ??No suspicious masses or microcalcifications. ??Benign appearing mass(es) within left breast, Benign appearing asymmetry within left breast and Intramammary lymph node within left breast. Procedure Note Fredrick Sarkar DO - 11/04/2011 XR MAMMO BILAT SCREEN FFDM [G0202.0] CLINICAL HISTORY: This is an asymptomatic 46 y.o. patient. INDICATION FOR EXAM: Mammogram Screening. TECHNIQUE: CC & MLO views were obtained. This digital study was evaluatedwith the assistance of Computer-Aided Detection. COMPARISON FILMS: Priors not available at the time of this report. FINDINGS: Mammographically, the breast tissue has scatteredfibroglandular densities (approximately 25% - 50% glandular). Nosuspicious masses or microcalcifications. Benign appearing mass(es)within left breast, Benign appearing asymmetry within left breast andIntramammary lymph node within left breast. IMPRESSION: There is no radiographic evidence for malignancy. Recommendannual mammograms. A lay language report of this examination will be provided to the patient. MAMMOGRAM ASSESSMENT: ACR 2 Benign Irina White MD MAMMO from Last 3 Months or Most Recently Relevant to Health Maintenance Care Teams Baggage And Mail Agent Relationship Specialty Start Date End Date Pcp, No . PCP - General 06/02/12
== END 2024-06-25 07:56 | disposition home or self-care (01) ==
LOC: NFLDREF 11:01
PROVIDERS: PCP Family Medicine; Referring Provider Family Medicine; Visit Provider Family Medicine
DX: D64.9 Anemia, unspecified (principal); I10 Essential (primary) hypertension; E78.5 Hyperlipidemia, unspecified; E55.9 Vitamin D deficiency, unspecified; R73.01 Impaired fasting glucose; E66.9 Obesity, unspecified
CPT/HCPCS: 80053; 80061; 82306

== ENCOUNTER 2024-07-01 16:30 | Emergency (ER) | payer OTHER, SELFPAY ==
[2024-07-01] VITALS (16 sets, daily range): BP systolic 147–188; BP diastolic 74–87; PULSE 86–99; RESP 20; O2SAT 96–100; BMI 37.3
--- NOTE | 2024-07-01 16:49 | ED_ITS ---
HPI - General Adult General Time Seen by Provider: 16:50 Date Seen: 07/01/24 Chief complaint: Headache/Migraine Stated complaint: fell, hit head on sidewalk Time Seen by Provider: 07/01/24 16:31 Source: patient and RN notes reviewed Mode of arrival: ambulatory Limitations: no limitations History of Present Illness HPI narrative: This 58-year-old female is coming in with a headache, facial trauma after falling. She tripped over a pitchfork, falling face 1st hitting the front of her for Ed on the edge of the sidewalk, also injuring the bridge of her nose. Her glasses did not break but she sustained trauma with a laceration over the bridge of her nose, did bleed a lot. She also has a laceration vertically situated in the front of her forehead in the center that bled a lot per report. She is unsure of her tetanus, did look in her chart and it was last given on 06/10/2019. There was no loss of consciousness but she did see stars briefly. She has an increasing headache, does not typically suffer from headaches. It is in the front of her whole forehead and radiates in back. No neck pain. She did also injure her right thumb, feels like she reached out to brace the fall. She then went on to her left side, has a small abrasion on her left anterior knee and left lateral elbow without any underlying pain in the extremity itself, just superficial. She is not on any blood thinners. Related Data Home Medications ?Medication ?Instructions ?Recorded ?Confirmed cholecalciferol (vitamin D3) 25 25 mcg PO QDAY 04/16/22 07/01/24 mcg (1,000 unit) capsule multivitamin 1 tab PO QAM 04/16/22 07/01/24 Previous Rx's ?Medication ?Instructions ?Recorded losartan 50 mg tablet 50 mg PO QDAY #90 tabs 06/29/24 Allergies Allergy/AdvReac Type Severity Reaction Status Date / Time Macrolide Antibiotics Allergy Mild intolerance Verified 06/29/24 10:03 lisinopril AdvReac Mild Cough Verified 06/29/24 10:03 SEASONAL Allergy Mild Sneezing Uncoded 06/29/24 10:03 Review of Systems 2 Status of ROS: Reports: 6 or more systems reviewed and unremarkable except as noted in History and below [facility] Medical History Hypertension ?I10 - Essential (primary) hypertension (ICD-10) Obesity with body mass index (BMI) of 30.0 to 39.9 ?E66.9 - Obesity, unspecified (ICD-10) Family history of malignant neoplasm of endometrium ?Z80.49 - Family history of malignant neoplasm of other genital organs (ICD- 10) Benign colonic polyp (08/05/19) ?K63.5 - Polyp of colon (ICD-10) Surgical History S/P total hysterectomy and BSO (bilateral salpingo-oophorectomy) (~11/2022) ?Z90.710 - Acquired absence of both cervix and uterus (ICD-10) ?Z90.722 - Acquired absence of ovaries, bilateral (ICD-10) ?Z90.79 - Acquired absence of other genital organ(s) (ICD-10) Hx of dilation and curettage (~07/2022) ?Z98.890 - Other specified postprocedural states (ICD-10) History of laparoscopic cholecystectomy (1999) ?Z90.49 - Acquired absence of other specified parts of digestive tract (ICD- 10) History of dilation and curettage (2000) ?Z98.890 - Other specified postprocedural states (ICD-10) History of colonoscopy (08/05/19) ?Z98.890 - Other specified postprocedural states (ICD-10) Family History Paternal Grandmother Breast cancer, Onset Age: 80 Maternal Grandmother Diabetes Coronary artery disease, Onset Age: 60 Father Hx of CABG, Onset Age: 85 Son Disorder of metabolism Mother Uterine cancer, Onset Age: 39 Asthma Social History Narrative: , corporate event planner, 2 kids, nonsmoker, rare alcohol use walks 4-5days a week : 2 miles What is your current living situation?: I presently have a place to live Problems where you live: no known problems In the past 12 months, utilities in danger of being shut off: no In past 12 months, lack of transportation kept you from medical appts, meetings, work, or getting things needed for daily living: no In the past 12 mos, have been you worried that your food would run out before you had money to buy more?: never true In the past 12 mos, the food you bought just didn't last and you didn't have money to buy more?: never true Smoking Status: Never smoker Do you use any of these nicotine containing products: None How often do you have a drink containing alcohol: monthly or less Alcohol type: hard liquor How many standard drinks containing alcohol do you have on a typical day: 1 or 2 How often do you have six or more drinks on one occasion: Never AUDIT-C Alcohol total score: 1 Non-prescribed substance use: denies use Caffeine: Yes (coffee, 2cups/AM) How often does anyone, including family, friends and others, physically hurt you : never How often does anyone, including family, friends and others, insult or talk down to you: never How often does anyone, including family, friends and others, threaten you with harm: never How often does anyone, including family, friends and others, scream or curse at you: never Little interest or pleasure in doing things: not at all Feeling down, depressed, or hopeless: not at all Are you using contraception or practicing any form of control: No service: No Exam Const: Vital Signs, click to edit/add: Vital Signs - 24 hr 07/01/24 16:35 07/01/24 17:09 07/01/24 17:10 Pulse Rate 99 96 Pulse Rate [Right Radial] 96 Respiratory Rate 20 Blood Pressure 168/75 H Blood Pressure [Le ft Upper Arm] 147/74 H Pulse Oximetry 100 100 98 Oxygen Delivery Me thod Room Air 07/01/24 17:15 07/01/24 17:34 Pulse Rate 96 95 Pulse Rate [Right Radial] Respiratory Rate Blood Pressure Blood Pressure [Le ft Upper Arm] Pulse Oximetry 99 100 Oxygen Delivery Me thod Tisha is a 58-year-old female that is ambulatory into the ED. She is alert, interactive, no apparent distress. She has some blood an obvious laceration situated vertically in the center of her forehead, not actively bleeding, cannot tell the exact length at this point but probably under 2 cm. She has a little semi circular flap on the bridge of her nose likely from where her glasses hit the bridge. There is some mild swelling. Anterior nares are normal, no blood in the nares, no swelling in the nares. TMs canals are normal, no hemotympanum. Oropharynx with normal mucosa, no traumatic change. She feels like there is no pain with movement of her jaw and that her teeth occlude normally. Pupils are equal round reactive, sclera clear, extraocular muscles intact. No midline tenderness of her neck, no cervical adenopathy. Lungs are clear, good air entry, no wheezing or crackles, no tachypnea. CV regular rate and rhythm, no murmur, normal S1-S2, no S3-S4. Abdomen is soft, nontender, nondistended, no organomegaly. No lower extremity edema, small about dime-size very superficial abrasion over the left anterior knee area, similar along the left lateral elbow. Upper extremities have full range of motion throughout the shoulders arms and throughout the hand on the left side but she notably has tenderness along the 1st metacarpal and 1st metacarpophalangeal joint. There may be some mild bruising over the thenar eminence that starting. Neurovascular is intact, she still has preserved range of motion although it is somewhat painful for her. Documenting provider has reviewed patient's vital signs: yes Course Course ED Course: We obviously will be doing head CT imaging. Discussed pain management. We will rule out intracranial pathology, headache is likely traumatic related in need to ensure no fracture or intracranial bleeding. We will start with Tylenol 1000 mg orally. She does not want anything stronger at this time. She obviously is going to need a laceration repair in her forehead for sure, do think that she probably would benefit with at least a couple sutures over the bridge of the nose to tack this flap down. Her tetanus is up-to-date. We will also be imaging her right hand to ensure no underlying fracture. Reevaluation(s) Time of Reevaluation #1: 17:48 Reevaluation #1: 0.25% bupivacaine was used for local anesthesia. Her forehead wound is about 1.5 cm in length, did pick out some grass debris as I a anesthetized. Did put a small amount bupivacaine in the flap in her nose as well, this certainly is going to benefit from a few anchoring stitches to keep this flap down. Will have nursing staff irrigate the forehead wound. I will clean the nose flap myself as I repair it, will planned irrigated with some sterile saline. Still awaiting her head imaging and hand x-rays to be read. I do not see any acute pathology on her hand images as far as fracture on my preliminary review, await Radiology over-read. Time of Reevaluation #2: 18:47 Reevaluation #2: Reviewed with patient that her head CT is not showing any intracranial patholog y, no fracture. Likewise there is no fracture on her hand imaging. We did discuss possibility of underlying concussion, time will tell if she has ongoing symptoms. She has experience with a concussion with her daughter in seems to be educated in this. Vital Signs Vital signs: Initial Vital Signs Pulse Rate 96 07/01/24 16:35 Pulse Rhythm Regular 07/01/24 16:35 Respiratory Rate 20 07/01/24 16:35 Blood Pressure 147/74 H 07/01/24 16:35 Blood Pressure Mean 98 07/01/24 16:35 Pulse Oximetry 100 07/01/24 16:35 Oxygen Delivery Method Room Air 07/01/24 16:35 Vital Signs Pulse Rate 96 07/01/24 16:35 Respiratory Rate 20 07/01/24 16:35 Blood Pressure 147/74 H 07/01/24 16:35 Pulse Oximetry 100 07/01/24 16:35 Oxygen Delivery Method Room Air 07/01/24 16:35 Pulse Rate 95 07/01/24 17:34 Respiratory Rate 20 07/01/24 16:35 Blood Pressure 168/75 H 07/01/24 17:09 Pulse Oximetry 100 07/01/24 17:34 Oxygen Delivery Method Room Air 07/01/24 16:35 Medications Administered Medications: Discontinued Medications Generic Name Dose Route Start Last Admin Trade Name Freq PRN Reason Stop Dose Admin Acetaminophen 1,000 mg 07/01/24 16:55 07/01/24 17:00 Acetaminophen 500 Mg Tablet PO 07/01/24 16:56 1,000 mg ONCE ONE Administration Medical Decision Making Imaging Data CT scan - head: Attestation: I have reviewed the pertinent imaging results. Radiologist's impression: Patient: TISHA JAQUEZ Facility:?[facility] Patient ID:?[id number] Site Patient ID:?[id number]. Site :?[id number] Study:?CT-Head WITHOUT-07/01/2024 5:27:38 PM Ordering Physician:Hitesh Khan Final Report: Indication: Trauma. Headache. Technique: CT of the brain was performed without intravenous contrast. Comparison: None relevant available at this institution. Findings: No acute blurring of the juárez-white differentiation. There is no intracranial hemorrhage. The ventricles are proportionate to the cerebral sulci. The 4th ventricle is midline. Basal cisterns appear patent. No abnormal extra-axial fluid collection identified. There is no intracranial mass, mass effect or midline shift identified. No depressed calvarial fracture. Small superficial frontal scalp contusion. Impression: No acute intracranial process. Please note that all CT scans at this facility use dose modulation, iterative reconstruction, and/or weight-based dosing when appropriate to reduce radiation dose to as low as reasonably achievable. Dictated by Luciano Nuñez MD @ 07/01/2024 5:59:47 PM (Electronic Signature) XR right hand: Attestation: I have reviewed the pertinent imaging results. Radiologist's impression: Patient: TISHA JAQUEZ Facility:?[facility] Patient ID:?[id number] Site Patient ID:?[id number]. Site :?[id number] Study:?XRay-Extremity Right HAND 3 VIEWS-07/01/2024 5:31:51 PM Ordering Physician:?Valeriano Khan Final Report: Indication: Pain, fall Technique: Three views of the right hand Comparison: None Findings/impression : Normal alignment and mineralization without acute fracture, dislocation or suspicious bony. Tiny corticated ossific density adjacent to the ring finger D IP joint is likely sequela of old trauma. Joints are otherwise preserved. There are no soft tissue radiopaque foreign bodies. Dictated by Julio Bar MD @ 07/01/2024 6:18:49 PM (Electronic Signature) Discharge Plan Discharge Clinical Impression: Fall, Closed head injury without loss of consciousness, Forehead laceration, Nasal laceration, Contusion of right hand Patient Disposition: Home, Self-Care Condition: Stable Instructions: Care For Your Stitches (ED), Laceration (ED), Concussion (ED) Additional Instructions: May shower as usual. Use bacitracin 3 to 4 times a day in a light layer over your wounds. Need to schedule clinic follow-up in about 1 weeks time to assess these for suture removal. If there are concerns of infection, please seek re- evaluation. May need to use ice to the thumb area as well as to your face to help decrease pain and swelling. Can use Tylenol and or ibuprofen as needed for pain management, follow bottle directions for dosing. If you have ongoing h eadaches, symptoms of concussion, please talk to your primary care provider at follow-up. Blood pressure was elevated here in the ER but this can be due to the environment and on and pain, have blood pressure rechecked at your follow- up. Activity Level: Activity as Tolerated Prescriptions: No Action losartan 50 mg tablet 50 mg PO QDAY Qty: 90 3RF cholecalciferol (vitamin D3) 25 mcg (1,000 unit) capsule 25 mcg PO QDAY multivitamin Tablet 1 tab PO QAM Follow Up/Referrals: Clari Goldberg MD [Primary Care Provider] - Stand Alone Forms: [facility] Info Instructions Procedures Laceration Laceration 1: Pre procedure diagnosis: Nasal bridge laceration Post procedure diagnosis: Same Site marking: not applicable Name of person performing procedure: Erin Bal Site: face Size (cm): 1 Description: flap Depth: simple, single layer Local Anesthetic: bupivacaine 0.25% Amount of anesthesia used (mL): 1 Pre-repair: wound explored, irrigated extensively and deep structures intact Skin layer closed with: other (Ethilon) Size (cm): 6-0 Number of sutures: 5 Technique: simple, interrupted Wound cleansing: sterile water Estimated blood loss (if any): none Conclusion: patient tolerated procedure Laceration 2: Pre procedure diagnosis: Forehead laceration Site marking: not applicable Name of person performing procedure: Erin Bal Site: face Size (cm): 2 Description: linear Depth: simple, single layer Local Anesthetic: bupivacaine 0.25% Amount of anesthesia used (mL): 4 Pre-repair: wound explored (After this wound is clean, can see superficial abrasion with loss of epidermis around the wound.), irrigated extensively and deep structures intact Skin layer closed with: other (Ethilon) Size (cm): 5-0 Number of sutures: 8 Technique: simple, interrupted Wound cleansing: sterile water Conclusion: patient tolerated procedure
--- NOTE | 2024-07-01 16:55 | CRLHL7_ITS ---
For Patients: As a result of the Cures Act, medical imaging exams and procedure reports are released immediately into your electronic medical record. You may view this report before your referring provider. If you have questions, please contact your health care provider. Indication: Pain, fall Technique: Three views of the right hand Comparison: None Findings/impression : Normal alignment and mineralization without acute fracture, dislocation or suspicious bony. Tiny corticated ossific density adjacent to the ring finger D IP joint is likely sequela of old trauma. Joints are otherwise preserved. There are no soft tissue radiopaque foreign bodies. Dictated by Julio Bar MD @ 07/01/2024 6:18:49 PM (Electronically Signed)
--- NOTE | 2024-07-01 16:55 | CRLHL7_ITS ---
For Patients: As a result of the Century Cures Act, medical imaging exams and procedure reports are released immediately into your electronic medical record. You may view this report before your referring provider. If you have questions, please contact your health care provider. Indication: Trauma. Headache. Technique: CT of the brain was performed without intravenous contrast. Comparison: None relevant available at this institution. Findings: No acute blurring of the juárez-white differentiation. There is no intracranial hemorrhage. The ventricles are proportionate to the cerebral sulci. The 4th ventricle is midline. Basal cisterns appear patent. No abnormal extra-axial fluid collection identified. There is no intracranial mass, mass effect or midline shift identified. No depressed calvarial fracture. Small superficial frontal scalp contusion. Impression: No acute intracranial process. Please note that all CT scans at this facility use dose modulation, iterative reconstruction, and/or weight-based dosing when appropriate to reduce radiation dose to as low as reasonably achievable. Dictated by Luciano Nuñez MD @ 07/01/2024 5:59:47 PM (Electronically Signed)
[2024-07-01] MEDS: ACETAMINOPHEN 500 MG TABLET 1000 MG PO (17:00)
--- OUTSIDE RECORDS SUMMARY | 2024-07-01 17:00 | XMS_ITS | Clinical Summary ---
Author Organization [facility] Address [place], [place] [address] Care Team Providers Care Medical Equipment Repair Technician Name Role Phone Pcp, No Primary Care [...] Comments Blood Pressure 142/83 11/04/2019 4:02 PM [employer] Pulse 88 11/04/2019 4:02 PM [employer] Temperature 36.7 ??C (98 ??F) 11/04/2019 4:01 PM [employer] Respiratory Rate - - Oxygen Saturation 99% 11/04/2019 4:01 PM [employer] Inhaled Oxygen Concentration - - Weight 101.6 kg (224 lb) 11/04/2019 4:01 PM [employer] Height 166.2 cm (5' 5.43) 11/04/2019 4:01 PM CS T Body Mass Index 36.78 11/04/2019 4:01 PM [employer] Plan of Treatment Health Maintenance Due Date [...] Procedure Name Priority Date/Time Associated Diagnosis Comments RENEWAL SPECIALIST THIN PREP PAP SCREEN IMAGED Routine 06/10/2019 10:49 AM CDT LIPID PANEL Routine 12/10/2011 2:30 PM CDT Well woman exam XR MAMMO BILAT SCREEN FFDM (IA) Routine 11/01/2011 4:44 PM [employer] Other screening mammogram from Last 3 Months or Most Recently Relevant to Health Maintenance Results * RENEWAL SPECIALIST THIN PREP PAP SCREEN IMAGED (06/10/2019 10:49 AM CDT) Case Report Gynecologic Cytology Report ? Case: [id number] ? Authorizing Provider: ??Clari Goldberg MD ??Collected: ? 06/10/2019 1049 ? Ordering Location: ? [facility] ?Received: ?06/11/2019 1125 ? First Screen: ?Dennis Shrestha ? Specimen: ?RENEWAL SPECIALIST ThinPrep Vial Screening, Cervical/Vaginal ? 06/17/2019 8:02 AM CDT [facility] INTERPRETATION/ RESULT NEGATIVE FOR INTRAEPITHELIAL LESION OR MALIGNANCY (NIL) (none) 06/17/2019 8:02 AM CDT [facility] IMEN ADEQUACY Satisfactory for evaluation No endocervical component seen 06/17/2019 8:02 AM CDT [facility] HPV REQUEST HPV and PAP 06/17/2019 8:02 AM CDT [facility] Menstrual Status 06/17/2019 8:02 AM CDT [facility] Comment:menopause Automated Review Successful 06/17/2019 8:02 AM CDT [facility] Comment:Specimen processed s uccessfully by automated corporate scheduler device, [employer] System, [employer] ANCILLARY TESTING RENEWAL SPECIALIST HPV Ordered, Please see separate report 06/17/2019 8:02 AM CDT [facility] Note The pap test is [...] lesions. Cytology is screened and interpreted at [facility] - [address], [place] [address] and [facility] - [address]; [place] [address] and [facility] - [address]; [place] [address] and [facility] [address]; [place] [address] 06/17/2019 8:02 AM CDT [facility] Other (Cervical/Vagina l) 06/10/2019 10:49 AM CDT 06/11/2019 11:25 AM CDT Clari Goldberg MD PATHOLOGY/[facility]O [facility] [address] [place] [address], [place] * LIPID PANEL (12/10/2011 2:30 PM CDT) CHOLESTEROL,TOTAL 156 100 - 199 mg/dL [facility] TRIGLYCERIDES 96 <150 mg/dL [facility] HDL CHOLESTEROL 44 >40 mg/dL [facility] CHOL/HDL RATIO 3.55 <4.50 [facility] LDL CHOLESTEROL 93 <131 mg/dL [facility] PATIENT STATUS Fasting [facility] Blood specimen (specimen) BLOOD SPECIMEN / Unknown 12/10/2011 2:30 PM CDT 12/10/2011 2:26 PM CDT Irina White MD CHEMISTRY [facility] [address] [id number] * XR MAMMO BILAT SCREEN FFDM (11/01/2011 4:44 PM [employer]) Anatomical Region Laterality Modality BREASTS, Breast Left, Breast Right Bilateral Mammography Impressions 11/04/2011 12:25 PM [employer] ??There is no radiographic evidence for malignancy. ??Recommend annual mammograms. A lay language report of this examination will be provided to the patient. MAMMOGRAM ASSESSMENT: ??ACR 2 Benign Narrative 11/04/2011 12:25 PM [employer] XR MAMMO BILAT SCREEN FFDM [G0202.0] CLINICAL [...] Recently Relevant to Health Maintenance Care Teams Medical Equipment Repair Technician Relationship Specialty Start Date End Date Pcp, No . PCP - General 06/02/12
== END 2024-07-01 19:28 | disposition home or self-care (01) ==
PROVIDERS: Emergency Provider Family Medicine; PCP Family Medicine
DX: S01.81XA Laceration without foreign body of other part of head, initial encounter (principal); S01.21XA Laceration without foreign body of nose, initial encounter; S60.221A Contusion of right hand, initial encounter; W18.09XA Striking against other object with subsequent fall, initial encounter
CPT/HCPCS: 12013; 70450; 73130; 99284; 99285; A9270

== ENCOUNTER 2024-10-19 08:38 | Outpatient (CLI) | payer OTHER, SELFPAY | END 2024-10-19 08:39 | disposition home or self-care (01) | LOC: MAMMO 08:38 | PROVIDERS: PCP Family Medicine; Visit Provider Obstetrics & Gynecology | DX: N64.4 Mastodynia (principal) | CPT/HCPCS: 77066; G0279 ==

== ENCOUNTER 2025-02-03 11:33 | Outpatient (CLI) | payer OTHER, SELFPAY | END 2025-02-03 11:34 | disposition home or self-care (01) | LOC: NFLDREF 02-10 23:55 | PROVIDERS: PCP Family Medicine; Referring Provider Family Medicine; Visit Provider Family Medicine | DX: I10 Essential (primary) hypertension (principal) | CPT/HCPCS: 80048 ==

== ENCOUNTER 2025-06-24 07:39 | Outpatient (CLI) | payer OTHER, SELFPAY | END 2025-06-24 07:40 | disposition home or self-care (01) | LOC: NFLDREF 06-27 11:40 | PROVIDERS: PCP Family Medicine; Referring Provider Family Medicine; Visit Provider Family Medicine | DX: I10 Essential (primary) hypertension (principal); E78.00 Pure hypercholesterolemia, unspecified; R73.01 Impaired fasting glucose | CPT/HCPCS: 80053; 80061 ==